=== PATIENT | male | born 1955 | race Caucasian/White ===

== ENCOUNTER → 2023-11-22 13:43 | Outpatient (CLI) | payer MEDICARE, OTHER, SELFPAY ==
--- NOTE | 2023-11-22 13:48 | DI.ECHO.S_ITS ---
[facility] : : [address] : : [place] : : [id number] : : Phone: [phone] Echocardiogram Report + + :Name: FLAVIO HANNON Study Date: 11/22/2023 Height: 68.5 in: :[facility] ReadingLocation: Weight: 155 lb : : Gender: Male BSA: 1.8 m2 : :: 1955 Age: 68 yrs BP: 119/78 mmHg: :Reason For Study: ATYPICAL CHEST PAIN : :Ordering Physician: TISHA, : :REMY Performed By: Kelley Euceda : :Referring: REMY GILES : + + Interpretation Summary The left ventricle is normal in size and wall thickness. The left ventricular ejection fraction is normal. The ejection fraction is estimated to be 55-60%. The right ventricle is normal in size and function. There is mild tricuspid regurgitation. The right ventricular systolic pressure is estimated to be at least 18 mmHg based on an estimated right atrial pressure of 3 mm Hg. Procedure: A two-dimensional transthoracic echocardiogram with color flow and Doppler was performed. The study quality was technically adequate. There is no prior echocardiogram noted for this patient. The patient was in sinus rhythm with heart rates between 53-65 bpm during the exam. Left Ventricle: The left ventricle is normal in size and wall thickness. There is no thrombus. A false chord is noted (normal variant). The ejection fraction is estimated to be 55-60%. The left ventricular ejection fraction is normal. There are no focal wall motion abnormalities. Diastolic parameters suggest a relaxation abnormality of the left ventricle, consistent with probable normal filling pressures. Right Ventricle: The right ventricle is normal in size and function. Atria: The left atrial size is normal. Right atrial size is normal. There is no Doppler evidence for an interatrial shunt. Mitral Valve: The mitral valve is normal in structure and function. There is trace mitral regurgitation. Aortic Valve: The aortic valve is trileaflet. The aortic valve opens well. There is no aortic valve stenosis. No aortic regurgitation is present. Tricuspid Valve: The tricuspid valve is normal in structure and function. There is mild tricuspid regurgitation. The right ventricular systolic pressure is estimated to be at least 18 mmHg based on an estimated right atrial pressure of 3 mm Hg. Pulmonic Valve: The pulmonic valve leaflets are thin and pliable; valve motion is normal. There is trace pulmonic regurgitation. Great Vessels: The aortic root is normal size. The dimensions of the ascending aorta are normal. The IVC is of normal diameter and collapses greater than 50% with a sniff. This suggests a low right atrial pressure of 3 mm Hg. Pericardium/ Pleura There is no pericardial effusion. There is no pleural effusion. MMode/2D Measurements & Calculations LVIDd: 4.7 cm LVOT diam: 2.0 cm LVIDs: 3.2 cm Ao root diam: 3.3 cm FS: 33.2 % asc Aorta Diam: 3.1 cm EPSS: 0.56 cm Ao Arch Diam (Prox Trans): 2.7 cm IVSd: 0.91 cm LVPWd: 0.94 cm LV mera. diameter/BSA (cm/m^2): 2.6 LV sys. diameter/BSA (cm/m^2): 1.7 LA A2 area: 18.5 cm2 RA long axis: 4.8 cm LA A4 area: 16.2 cm2 RA area: 15.1 cm2 LA length (vol): 4.9 cm RA vol: 40.8 ml LA vol: 51.9 ml RA : 22.1 ml/m2 LA vol index: 28.1 ml/m2 IVC diam: 1.3 cm RVD1 (basal): 3.9 cm RVD2 (mid): 3.0 cm TAPSE: 1.9 cm Doppler Measurements & Calculations Ao V2 max: 105.8 cm/sec LVOT Max Raudel: 86.7 cm/sec Ao V2 mean: 74.7 cm/sec LV V1 max P.0 mmHg Ao max P.5 mmHg LV V1 VTI: 18.4 cm Ao mean P.5 mmHg ABIDA(I,D): 2.6 cm2 Ao V2 VTI: 21.3 cm ABIDA(V,D): 2.5 cm2 sev ratio: 0.86 ABIDA indexed to BSA (cm^2/m^2): 1.4 MV E max raudel: 47.2 cm/sec TR max raudel: 195.6 cm/sec MV A max raudel: 73.5 cm/sec TR max P.3 mmHg MV E/A: 0.64 PA V2 max: 95.7 cm/sec Med Peak E' Raudel: 5.0 cm/sec PA V2 mean: 65.1 cm/sec E/E' med: 9.4 PA mean P.9 mmHg Lat Peak E' Raudel: 7.3 cm/sec PA pr(Accel): 41.3 mmHg E/E' lat: 6.5 E/e' average: 7.9 MV dec time: 0.26 sec SV(LVOT): 55.3 ml Reading Physician:04:00 PM
--- NOTE | 2023-11-22 19:43 | DI.NM.S_ITS ---
DATE OF SERVICE: EXERCISE STRESS TEST INDICATION: Chest pain, palpitation. CARDIAC STRESS: Patient underwent exercise stress test under the supervision of an attending staff. He walked on [place] protocol for 10 minutes and 50 seconds, achieved maximum heart rate of 150, which was 105% of target heart rate, KARLY -46%, 12.8 METS of workload. Resting blood pressure 120/80 and peak blood pressure 159/82. Baseline rhythm sinus. During stress, no convincing ischemic changes seen. No significant arrhythmias. No chest pain. Had some shortness of breath. CONCLUSION: Exercise stress test is negative for inducible ischemia. Good exercise tolerance. Normal hemodynamic response. No anginal symptoms. No significant arrhythmias. Overall, low-risk exercise stress test. Kirby De Anda - SRAVANI/yanique/LASHAE doc#: [id number]/job#: [id number] dd: 11/22/2023 17:26:00 dt: 11/22/2023 19:34:00 DICTATING /COPIES TO: Sisi Fernandez MD COPIES MNE: VINCENZO;
== END ==
PROVIDERS: PCP Family Medicine; Referring Provider Internal Medicine Cardiovascular Disease; Visit Provider Internal Medicine Cardiovascular Disease
DX: I07.1 Rheumatic tricuspid insufficiency (principal); R07.89 Other chest pain
CPT/HCPCS: 93017; 93306